=== PATIENT | female | born 2000 | race Caucasian/White ===

== ENCOUNTER 2025-07-03 11:38 | Outpatient (CLI) | payer BC, SELFPAY ==
[2025-07-03 11:27] LABS: Abs Immature Grans 0.16 10^3/uL (0.0-0.06); HCT 43.8 % (36.0-46.0); HGB 15.3 g/dL (11.2-15.7); Immature Grans % 0.8 %; MCH 29.2 pg (27.0-33.0); MCHC 34.9 % (32.0-36.0); MCV 84 fL (80-95); MPV 11.1 fL (8.0-11.0); Platelet Count 102 10^3/uL (130-400); RBC 5.24 10^6/uL (3.93-5.22); RDW 13.2 % (11.7-14.6); RDW-SD 39.9 fL; WBC 19.85 10^3/uL (4.4-10.8)
== END 2025-07-03 11:39 | disposition home or self-care (01) ==
LOC: LBO 11:43
DX: D69.41 Evans syndrome (principal)
CPT/HCPCS: 36415; 85025

== ENCOUNTER 2025-07-06 13:18 | Outpatient (CLI) | payer BC, SELFPAY ==
[2025-07-06 13:31] LABS: Abs Immature Grans 0.16 10^3/uL (0.0-0.06); HCT 45.6 % (36.0-46.0); HGB 16.0 g/dL (11.2-15.7); Immature Grans % 1.3 %; MCH 29.0 pg (27.0-33.0); MCHC 35.1 % (32.0-36.0); MCV 83 fL (80-95); MPV 9.6 fL (8.0-11.0); Platelet Count 174 10^3/uL (130-400); RBC 5.52 10^6/uL (3.93-5.22); RDW 12.8 % (11.7-14.6); RDW-SD 38.3 fL; WBC 12.51 10^3/uL (4.4-10.8)
== END 2025-07-06 13:19 | disposition home or self-care (01) ==
LOC: LBO 13:19
DX: D69.41 Evans syndrome (principal)
CPT/HCPCS: 36415; 85025

== ENCOUNTER 2025-07-10 15:12 | Outpatient (CLI) | payer BC, SELFPAY ==
[2025-07-10 15:14] LABS: Abs Immature Grans 0.11 10^3/uL (0.0-0.06); HCT 45.5 % (36.0-46.0); HGB 15.7 g/dL (11.2-15.7); Immature Grans % 1.2 %; MCH 28.7 pg (27.0-33.0); MCHC 34.5 % (32.0-36.0); MCV 83 fL (80-95); MPV 9.6 fL (8.0-11.0); Platelet Count 169 10^3/uL (130-400); RBC 5.47 10^6/uL (3.93-5.22); RDW 12.6 % (11.7-14.6); RDW-SD 38.2 fL; WBC 8.87 10^3/uL (4.4-10.8)
== END 2025-07-10 15:13 | disposition home or self-care (01) ==
LOC: LBO 15:13
DX: D69.3 Immune thrombocytopenic purpura (principal)
CPT/HCPCS: 36415; 85025

== ENCOUNTER 2025-07-17 15:28 | Outpatient (CLI) | payer BC, SELFPAY ==
[2025-07-17 15:53] LABS: Abs Immature Grans 0.02 10^3/uL (0.0-0.06); HCT 42.6 % (36.0-46.0); HGB 14.8 g/dL (11.2-15.7); Immature Grans % 0.3 %; MCH 28.8 pg (27.0-33.0); MCHC 34.7 % (32.0-36.0); MCV 83 fL (80-95); MPV 9.7 fL (8.0-11.0); Platelet Count 149 10^3/uL (130-400); RBC 5.13 10^6/uL (3.93-5.22); RDW 12.6 % (11.7-14.6); RDW-SD 37.8 fL; WBC 6.06 10^3/uL (4.4-10.8)
== END 2025-07-17 15:29 | disposition home or self-care (01) ==
LOC: LBO 15:31
DX: D69.3 Immune thrombocytopenic purpura (principal)
CPT/HCPCS: 36415; 85025

== ENCOUNTER 2025-07-21 16:15 | Outpatient (CLI) | payer BC, SELFPAY ==
[2025-07-21 15:49] LABS: Abs Immature Grans 0.02 10^3/uL (0.0-0.06); HCT 41.5 % (36.0-46.0); HGB 14.7 g/dL (11.2-15.7); Immature Grans % 0.4 %; MCH 29.3 pg (27.0-33.0); MCHC 35.4 % (32.0-36.0); MCV 83 fL (80-95); MPV 9.4 fL (8.0-11.0); Platelet Count 192 10^3/uL (130-400); RBC 5.02 10^6/uL (3.93-5.22); RDW 12.9 % (11.7-14.6); RDW-SD 38.4 fL; WBC 5.49 10^3/uL (4.4-10.8)
== END 2025-07-21 16:16 | disposition home or self-care (01) ==
LOC: LBO 16:16
DX: D69.3 Immune thrombocytopenic purpura (principal)
CPT/HCPCS: 36415; 85025

== ENCOUNTER 2025-07-31 09:42 | Outpatient (CLI) | payer BC, SELFPAY ==
[2025-07-31 10:02] LABS: Abs Immature Grans 0.02 10^3/uL (0.0-0.06); HCT 43.4 % (36.0-46.0); HGB 14.9 g/dL (11.2-15.7); Immature Grans % 0.3 %; MCH 28.9 pg (27.0-33.0); MCHC 34.3 % (32.0-36.0); MCV 84 fL (80-95); MPV 9.4 fL (8.0-11.0); Platelet Count 224 10^3/uL (130-400); RBC 5.15 10^6/uL (3.93-5.22); RDW 13.2 % (11.7-14.6); RDW-SD 40.8 fL; WBC 6.17 10^3/uL (4.4-10.8)
== END 2025-07-31 09:43 | disposition home or self-care (01) ==
LOC: LBO 09:42
DX: D69.3 Immune thrombocytopenic purpura (principal)
CPT/HCPCS: 36415; 85025